=== PATIENT | female | born 1965 | race Caucasian/White ===

== ENCOUNTER 2019-09-14 16:20 | Emergency (ER) | payer MEDICAID ==
[~2019-09-14] VITALS: Ht 177.8 cm; Wt 68.2 kg
[2019-09-14 16:58] LABS: BASOPHILS % (AUTO) 0.6 % (0-1); EOSINOPHILS % (AUTO) 0.2 % (0-6); HEMATOCRIT 30.4 % (35.0-45.0); HEMOGLOBIN 9.3 g/dl (12.0-16.0); LYMPHOCYTES # (AUTO) 2.2 X10'3 (1.1-4.8); LYMPHOCYTES % (AUTO) 29.5 % (21-51); MEAN CORPUSCULAR HEMOGLOBIN 20.2 PG (27.0-31.0); MEAN CORPUSCULAR HGB CONC 30.7 g/dL (33.0-36.5); MEAN CORPUSCULAR VOLUME 65.8 FL (78-98); MEAN PLATELET VOLUME 8.5 FL (7.4-10.4); MONOCYTES # (AUTO) 0.5 X10'3 (0-0.9); MONOCYTES % (AUTO) 6.2 % (2-12); NEUTROPHILS # (AUTO) 4.8 X10'3 (1.8-7.7); NEUTROPHILS % (AUTO) 63.5 % (42-75); PLATELET COUNT 437 X10'3 (140-440); RED BLOOD COUNT 4.62 X10'6 (4.20-5.60); RED CELL DISTRIBUTION WIDTH 19.9 % (11.5-14.5); WHITE BLOOD COUNT 7.5 X10'3 (4.5-11.0)
[2019-09-14] MEDS ORDERED: LORazepam 2 mg/ml vial IV ONE (17:05)
[2019-09-14] MEDS ORDERED: normal saline 1000ML IV soln IVB ONE (17:10)
[2019-09-14 17:11] LABS: PARTIAL THROMBOPLASTIN TIME 23 SECONDS (22-32)
[2019-09-14 17:12] LABS: ALANINE AMINOTRANSFERASE 13 U/L (12-78); ALBUMIN 3.5 G/DL (3.4-5.0); ALBUMIN/GLOBULIN RATIO 0.8 (1.1-1.5); ALKALINE PHOSPHATASE 71 IU/L (46-116); ANION GAP 14 (8-16); ASPARTATE AMINO TRANSFERASE 22 U/L (10-37); BILIRUBIN,TOTAL 1.2 MG/DL (0.1-1.0); BLOOD UREA NITROGEN 11 MG/DL (7-18); BUN/CREATININE RATIO 11.6 (6.6-38.0); CALCIUM 8.9 MG/DL (8.5-10.1); CHLORIDE 99 MMOL/L (99-107); CREATININE 0.95 MG/DL (0.40-0.90); GLUCOSE 144 MG/DL (70-104); SODIUM 136 MMOL/L (135-145); TOTAL CARBON DIOXIDE 22.6 MMOL/L (24-32); TOTAL PROTEIN 7.8 G/DL (6.4-8.2); eGFR 62 ML/MIN
[2019-09-14 17:15] LABS: ANISOCYTOSIS 2+; HYPOCHROMASIA 1+; MICROCYTOSIS 2+; PLATELET ESTIMATE NORMAL; POLYCHROMASIA FEW
[2019-09-14 17:16] LABS: BURR CELLS FEW; ELLIPTOCYTES 1+; SCHISTOCYTES FEW
[2019-09-14] MEDS ORDERED: potassium Cl 20 mEq SR tablet PO ONE (17:20)
[2019-09-14] MEDS ORDERED: potassium Cl 10 mEq/100mL bag IV ONE (17:20)
[2019-09-14] MEDS: haloperidol lactate 5mg/ml inj IM ONE ×2 (17:22→18:02)
[2019-09-14] MEDS ORDERED: diltiazem 5mg/ml 5ml inj. IV ONE (18:00)
--- NOTE | 2019-09-14 18:25 | NUR ---
PT HR RESPONDING TO DITALIZEM, WILL BE DISCHARGED AFTER POTASSIUM 10 MEq FINISHED RUNNING.
[2019-09-14 18:47] VITALS: BP 108/73
== END 2019-09-14 18:48 | disposition home or self-care (01) ==
LOC: ER 16:21
DX: I48.91 Unspecified atrial fibrillation (principal); R11.2 Nausea with vomiting, unspecified; E86.0 Dehydration; N17.9 Acute kidney failure, unspecified; E87.6 Hypokalemia; E11.42 Type 2 diabetes mellitus with diabetic polyneuropathy; F12.90 Cannabis use, unspecified, uncomplicated; R10.10 Upper abdominal pain, unspecified; Z72.89 Other problems related to lifestyle
CPT/HCPCS: 36415; 71045; 80053; 84484; 85025; 85610; 85730; 93005; 96361; 96365; 96372; 96375; 99285; J1630; J2060; J3480; J7030; J3490

== ENCOUNTER 2019-10-19 16:26 | Emergency (ER) | payer MEDICAID ==
[~2019-10-19] VITALS: Ht 177.8 cm; Wt 75.0 kg
[2019-10-19 17:39] LABS: BASOPHILS % (AUTO) 0.4 % (0-1); EOSINOPHILS % (AUTO) 0 % (0-6); HEMATOCRIT 31.8 % (35.0-45.0); HEMOGLOBIN 9.8 g/dl (12.0-16.0); LYMPHOCYTES # (AUTO) 0.6 X10'3 (1.1-4.8); LYMPHOCYTES % (AUTO) 10.2 % (21-51); MEAN CORPUSCULAR HEMOGLOBIN 19.6 PG (27.0-31.0); MEAN CORPUSCULAR HGB CONC 30.8 g/dL (33.0-36.5); MEAN CORPUSCULAR VOLUME 63.7 FL (78-98); MEAN PLATELET VOLUME 8.4 FL (7.4-10.4); MONOCYTES # (AUTO) 0.1 X10'3 (0-0.9); MONOCYTES % (AUTO) 1.8 % (2-12); NEUTROPHILS # (AUTO) 5.6 X10'3 (1.8-7.7); NEUTROPHILS % (AUTO) 87.6 % (42-75); PLATELET COUNT 548 X10'3 (140-440); RED BLOOD COUNT 4.99 X10'6 (4.20-5.60); RED CELL DISTRIBUTION WIDTH 20.4 % (11.5-14.5); WHITE BLOOD COUNT 6.4 X10'3 (4.5-11.0)
[2019-10-19 17:53] LABS: ALANINE AMINOTRANSFERASE 17 U/L (12-78); ALBUMIN/GLOBULIN RATIO 0.8 (1.1-1.5); ALKALINE PHOSPHATASE 73 IU/L (46-116); ANION GAP 17 (8-16); ASPARTATE AMINO TRANSFERASE 23 U/L (10-37); BILIRUBIN,TOTAL 1.2 MG/DL (0.1-1.0); BLOOD UREA NITROGEN 18 MG/DL (7-18); BUN/CREATININE RATIO 24.3 (6.6-38.0); CALCIUM 9.4 MG/DL (8.5-10.1); CHLORIDE 100 MMOL/L (99-107); CREATININE 0.74 MG/DL (0.40-0.90); GLUCOSE 178 MG/DL (70-104); LIPASE 89 U/L (73-393); SODIUM 137 MMOL/L (135-145); TOTAL CARBON DIOXIDE 20.1 MMOL/L (24-32); TOTAL PROTEIN 8.9 G/DL (6.4-8.2); eGFR 82 ML/MIN
[2019-10-19 17:55] LABS: PLATELET ESTIMATE INCREASED
[2019-10-19 17:56] LABS: ANISOCYTOSIS 3+; ELLIPTOCYTES FEW; MICROCYTOSIS 2+; POIKILOCYTOSIS 1+; SCHISTOCYTES FEW
[2019-10-19 17:58] LABS: POTASSIUM 3.8 MMOL/L (3.5-5.1)
[2019-10-19] MEDS ORDERED: diphenhydrAMINE 50 mg/ml inj IV ONE (18:20)
[2019-10-19] MEDS ORDERED: metoclopramide 5 mg/ml inj IV ONE (18:20)
[2019-10-19] MEDS ORDERED: normal saline 1000ml 1,000 ML IV ONE (18:20)
--- NOTE | 2019-10-19 18:45 | NUR ---
pt states N/V has abated. Asks to hold reglan for now.
[2019-10-19 19:39] LABS: CLARITY,URINE CLEAR (Clear); COLOR,URINE YELLOW (Yellow); GLUCOSE, URINE NEGATIVE (Neg); KETONES,URINE >=80 mg/dl (Neg); LEUKOCYTE ESTERASE ,URINE NEGATIVE (Neg); NITRITES, URINE NEGATIVE (Neg); OCCULT BLOOD,URINE SMALL (Neg); PH,URINE 5.5 (4.8-8.0); PROTEIN,URINE NEGATIVE (Neg)
[2019-10-19 19:42] LABS: UA COLLECTION TYPE CLN CATCH MIDSTREAM
[2019-10-19 19:57] VITALS: BP 117/88
[2019-10-19 20:24] LABS: BACTERIA,URINE NONE SEEN /HPF (Neg); MUCUS STRANDS MODERATE /LPF (Neg); RBC,URINE 0-2 /HPF (0-2); SQUAMOUS EPITHELIAL CELL,UR FEW /LPF (FEW); WBC,URINE 0-4 /HPF (0-4)
== END 2019-10-19 20:10 | disposition home or self-care (01) ==
LOC: ER 16:27
DX: R11.2 Nausea with vomiting, unspecified (principal); R51 Headache; R10.9 Unspecified abdominal pain; E11.42 Type 2 diabetes mellitus with diabetic polyneuropathy; I48.91 Unspecified atrial fibrillation; F12.90 Cannabis use, unspecified, uncomplicated; Z72.89 Other problems related to lifestyle
CPT/HCPCS: 36415; 80053; 81001; 82948; 83690; 85025; 96361; 96374; 96375; 99284; J1200; J2765; J7030

== ENCOUNTER 2022-05-24 14:46 | Emergency (ER) | payer MEDICAID ==
[~2022-05-24] VITALS: Ht 177.8 cm; Wt 101.0 kg
[~2022-05-24 14:46] MED LIST: ACET-2971 PO; APIX5TAB3 PO; FLEC100T35 PO; GABA-581 PO; METF-1203 PO; METO-395 PO; NAPR-996 PO; ROSU40TA22 PO; SEMA0.253
[2022-05-24 16:43] LABS: BASOPHILS # (AUTO) 0.1 X10'3 (0-0.2); BASOPHILS % (AUTO) 1.1 % (0-1); EOSINOPHILS # (AUTO) 0.4 X10'3 (0-0.9); HEMATOCRIT 27.6 % (35.0-45.0); HEMOGLOBIN 8.7 g/dl (12.0-16.0); LYMPHOCYTES # (AUTO) 2.1 X10'3 (1.1-4.8); LYMPHOCYTES % (AUTO) 27.4 % (21-51); MEAN CORPUSCULAR HEMOGLOBIN 26.8 PG (27.0-31.0); MEAN CORPUSCULAR HGB CONC 31.6 g/dL (33.0-36.5); MEAN CORPUSCULAR VOLUME 84.7 FL (78-98); MEAN PLATELET VOLUME 8.3 FL (7.4-10.4); MONOCYTES # (AUTO) 0.7 X10'3 (0-0.9); MONOCYTES % (AUTO) 8.8 % (2-12); NEUTROPHILS # (AUTO) 4.4 X10'3 (1.8-7.7); NEUTROPHILS % (AUTO) 57.7 % (42-75); PLATELET COUNT 356 X10'3 (140-440); RED BLOOD COUNT 3.26 X10'6 (4.20-5.60); RED CELL DISTRIBUTION WIDTH 21.1 % (11.5-14.5); WHITE BLOOD COUNT 7.7 X10'3 (4.5-11.0)
[2022-05-24 16:59] LABS: ALANINE AMINOTRANSFERASE 17 U/L (12-78); ALBUMIN 3.4 G/DL (3.4-5.0); ALBUMIN/GLOBULIN RATIO 0.8 (1.1-1.5); ALKALINE PHOSPHATASE 69 IU/L (46-116); ANION GAP 10 (8-16); ASPARTATE AMINO TRANSFERASE 20 U/L (10-37); BILIRUBIN,TOTAL 0.3 MG/DL (0.1-1.0); BLOOD UREA NITROGEN 26 MG/DL (7-18); BUN/CREATININE RATIO 18.6 (10.0-20.0); CALCIUM 9.1 MG/DL (8.5-10.1); CHLORIDE 103 MMOL/L (99-107); GLUCOSE 159 MG/DL (70-104); POTASSIUM 4.4 MMOL/L (3.5-5.1); SODIUM 137 MMOL/L (135-145); TOTAL CARBON DIOXIDE 23.7 MMOL/L (24-32); TOTAL PROTEIN 7.8 G/DL (6.4-8.2); eGFR 39 ML/MIN
[2022-05-24 17:03] LABS: PLATELET ESTIMATE NORMAL
[2022-05-24 17:04] LABS: ANISOCYTOSIS 3+; ELLIPTOCYTES 1+; HYPOCHROMASIA 1+; POIKILOCYTOSIS 2+
[2022-05-24 17:05] LABS: MICROCYTOSIS 1+
[2022-05-24] MEDS ORDERED: apixaban 5mg tablet PO ONE (21:20)
[2022-05-24] MEDS ORDERED: naproxen 500mg tablet PO ONE (21:20)
[2022-05-24 21:25] LABS: BASOPHILS # (AUTO) 0.1 X10'3 (0-0.2); BASOPHILS % (AUTO) 1.1 % (0-1); EOSINOPHILS # (AUTO) 0.4 X10'3 (0-0.9); EOSINOPHILS % (AUTO) 6.6 % (0-6); HEMATOCRIT 24.3 % (35.0-45.0); HEMOGLOBIN 7.8 g/dl (12.0-16.0); LYMPHOCYTES # (AUTO) 2.2 X10'3 (1.1-4.8); LYMPHOCYTES % (AUTO) 36.1 % (21-51); MEAN CORPUSCULAR HGB CONC 32.2 g/dL (33.0-36.5); MEAN CORPUSCULAR VOLUME 83.8 FL (78-98); MEAN PLATELET VOLUME 8.3 FL (7.4-10.4); MONOCYTES # (AUTO) 0.6 X10'3 (0-0.9); MONOCYTES % (AUTO) 9.5 % (2-12); NEUTROPHILS # (AUTO) 2.8 X10'3 (1.8-7.7); NEUTROPHILS % (AUTO) 46.7 % (42-75); PLATELET COUNT 313 X10'3 (140-440); RED CELL DISTRIBUTION WIDTH 20.9 % (11.5-14.5); WHITE BLOOD COUNT 6.1 X10'3 (4.5-11.0)
[2022-05-24 21:44] LABS: URINE HCG NEGATIVE (NEG)
[2022-05-24 21:45] LABS: CLARITY,URINE CLOUDY (Clear); COLOR,URINE RED (Yellow)
[2022-05-24 21:52] LABS: UA COLLECTION TYPE CLN CATCH MIDSTREAM
[2022-05-24 21:53] LABS: RBC,URINE TNTC /HPF (0-2)
[2022-05-24 21:54] LABS: SQUAMOUS EPITHELIAL CELL,UR FEW /LPF (FEW)
[2022-05-24 21:55] LABS: BACTERIA,URINE NONE SEEN /HPF (Neg)
[2022-05-24 21:56] LABS: TRANSITIONAL EPI CELLS,URINE FEW /HPF
[2022-05-24 22:43] VITALS: BP 114/74
--- NOTE | 2022-05-25 00:23 | NUR ---
BLOOD BANK NOTIFIED PT REFUSED BLOOD
--- NOTE | 2022-05-25 00:24 | NUR ---
IV DC'D PT BEING DISCHARGED, DRESSING APPLIED
== END 2022-05-25 00:26 | disposition home or self-care (01) ==
LOC: ER 14:47
DX: N93.9 Abnormal uterine and vaginal bleeding, unspecified (principal); R53.83 Other fatigue; D64.9 Anemia, unspecified; E11.42 Type 2 diabetes mellitus with diabetic polyneuropathy; I48.91 Unspecified atrial fibrillation; F12.90 Cannabis use, unspecified, uncomplicated; Z72.89 Other problems related to lifestyle; Z79.01 Long term (current) use of anticoagulants; Z79.899 Other long term (current) drug therapy; Z79.84 Long term (current) use of oral hypoglycemic drugs
CPT/HCPCS: 36415; 80053; 81001; 81025; 85008; 85025; 86885; 86900; 86901; 86920; 87088; 99283

== ENCOUNTER 2023-02-20 12:02 | Day surgery (SDC) | payer MEDICAID ==
[~2023-02-20] VITALS: Ht 177.8 cm; Wt 102.0 kg
[2023-02-20] MEDS ORDERED: MIDAZolam 1mg/ml 10ml vial IV ONE (12:25)
[2023-02-20] MEDS ORDERED: normal saline 1000ml 1,000 ML IV SCH (12:25)
[2023-02-20] MEDS ORDERED: fentaNYL/PF 50MCG/1 ML 2ML syringe IV ONE (12:25)
== END 2023-02-20 12:45 | disposition home or self-care (01) ==
LOC: SSTAY O 12:02
PROVIDERS: ATTEND Internal Medicine Cardiovascular Disease
DX: I48.4 Atypical atrial flutter (principal); Z53.8 Procedure and treatment not carried out for other reasons; I48.91 Unspecified atrial fibrillation; E11.9 Type 2 diabetes mellitus without complications; E78.00 Pure hypercholesterolemia, unspecified; D64.9 Anemia, unspecified; Z79.01 Long term (current) use of anticoagulants; Z79.899 Other long term (current) drug therapy; Z98.890 Other specified postprocedural states; Z88.8 Allergy status to other drugs, medicaments and biological substances; Z82.49 Family history of ischemic heart disease and other diseases of the circulatory system; Z80.3 Family history of malignant neoplasm of breast
CPT/HCPCS: 93005; J7030; 85610; A4620

== ENCOUNTER 2023-05-12 07:37 | Day surgery (SDC) | payer MEDICAID ==
[~2023-05-12] VITALS: Ht 177.8 cm; Wt 94.7 kg
[2023-05-12] VITALS (14 sets, daily range): BP systolic 105–161; BP diastolic 65–104; PULSE 72–93; RESP 9–20; TEMP 97.8; O2SAT 92–99
[2023-05-12] MEDS ORDERED: LEVO25TA7 PO (08:06)
[2023-05-12] MEDS ORDERED: PREG50CA65 PO (08:06)
[2023-05-12] MEDS ORDERED: RIVA20TA PO (08:06)
[2023-05-12] MEDS ORDERED: AMI200T PO (08:06)
[2023-05-12] MEDS ORDERED: METF-438 PO (08:06)
[2023-05-12] MEDS ORDERED: EVOL140P3 SQ (08:06)
[2023-05-12] MEDS ORDERED: EMPA10TA PO (08:06)
[2023-05-12] MEDS ORDERED: MEGE40TA5 PO (08:06)
[2023-05-12] MEDS ORDERED: CALC667T6 PO (08:06)
[2023-05-12 08:57] LABS: BASOPHILS # (AUTO) 0.1 X10'3 (0-0.2); BASOPHILS % (AUTO) 0.9 % (0-1); EOSINOPHILS # (AUTO) 0.3 X10'3 (0-0.9); EOSINOPHILS % (AUTO) 3.8 % (0-6); HEMATOCRIT 37.7 % (35.0-45.0); HEMOGLOBIN 12.3 g/dl (12.0-16.0); LYMPHOCYTES # (AUTO) 1.2 X10'3 (1.1-4.8); LYMPHOCYTES % (AUTO) 17.4 % (21-51); MEAN CORPUSCULAR HGB CONC 32.6 g/dL (33.0-36.5); MEAN PLATELET VOLUME 9.3 FL (7.4-10.4); MONOCYTES # (AUTO) 0.8 X10'3 (0-0.9); MONOCYTES % (AUTO) 11.3 % (2-12); NEUTROPHILS # (AUTO) 4.5 X10'3 (1.8-7.7); NEUTROPHILS % (AUTO) 66.6 % (42-75); PLATELET COUNT 341 X10'3 (140-440); RED BLOOD COUNT 4.38 X10'6 (4.20-5.60); RED CELL DISTRIBUTION WIDTH 16.5 % (11.5-14.5); WHITE BLOOD COUNT 6.7 X10'3 (4.5-11.0)
[2023-05-12 09:09] LABS: ALBUMIN 3.1 G/DL (3.4-5.0); ANION GAP 15 (8-16); BLOOD UREA NITROGEN 30 MG/DL (7-18); BUN/CREATININE RATIO 18.1 (10.0-20.0); CALCIUM 9.6 MG/DL (8.5-10.1); CHLORIDE 103 MMOL/L (99-107); CREATININE 1.66 MG/DL (0.40-0.90); GLUCOSE 236 MG/DL (70-104); MAGNESIUM 2.1 MG/DL (1.5-2.4); POTASSIUM 4.6 MMOL/L (3.5-5.1); SODIUM 140 MMOL/L (135-145); TOTAL CARBON DIOXIDE 22.3 MMOL/L (24-32); eCRCL 40 ML/MIN; eGFR 32 ML/MIN
[2023-05-12] MEDS: normal saline 1000ml 1,000 ML IV SCH (09:26)
[2023-05-12] MEDS: fentaNYL/PF 50MCG/1 ML 2ML syringe IV ONE (09:26)
[2023-05-12] MEDS: MIDAZolam 1mg/ml 10ml vial IV ONE (09:26)
== END 2023-05-12 11:30 | disposition home or self-care (01) ==
LOC: SSTAY O 07:37
PROVIDERS: ATTEND Internal Medicine Cardiovascular Disease
DX: I48.0 Paroxysmal atrial fibrillation (principal); E11.9 Type 2 diabetes mellitus without complications; E78.00 Pure hypercholesterolemia, unspecified; Z79.01 Long term (current) use of anticoagulants; Z79.84 Long term (current) use of oral hypoglycemic drugs; Z79.890 Hormone replacement therapy; Z79.899 Other long term (current) drug therapy; Z98.891 History of uterine scar from previous surgery; Z98.890 Other specified postprocedural states; Z82.49 Family history of ischemic heart disease and other diseases of the circulatory system; Z80.3 Family history of malignant neoplasm of breast
CPT/HCPCS: 36415; 80048; 82948; 83735; 85025; 92960; 93005; J2250; J3010; J7030; A4620

== ENCOUNTER 2023-06-16 06:35 | Day surgery (SDC) | payer MEDICAID ==
[2023-06-16] VITALS (9 sets, daily range): BP systolic 94–122; BP diastolic 39–91; PULSE 78–104; RESP 12–22; TEMP 98.8; O2SAT 93–97
[~2023-06-16] VITALS: Ht 177.8 cm; Wt 94.6 kg
[~2023-06-16 06:35] MED LIST changes: -ACET-2971 PO; +AMI200T PO; -APIX5TAB3 PO; +CALC667T6 PO; +EMPA10TA PO; +EVOL140P3 SQ; -FLEC100T35 PO; +LEVO25TA7 PO; +MEGE40TA5 PO; -METF-1203 PO; +METF-438 PO; +PREG50CA65 PO; +RIVA20TA PO; -ROSU40TA22 PO
[2023-06-16] MEDS ORDERED: cefazolin 2gm/D5W 100mL 100 ML IV ONE (06:55)
[2023-06-16] MEDS ORDERED: INSU100I8 SQ (07:15)
[2023-06-16] MEDS ORDERED: INSU100V9 SQ (07:15)
[2023-06-16] MEDS ORDERED: FLO0.4C (07:15)
[2023-06-16] MEDS: VANCOMYCIN 1,500MG in normal saline IV soln 300 ML IV ONE (07:39)
[2023-06-16 07:44] LABS: BASOPHILS # (AUTO) 0.1 X10'3 (0-0.2); BASOPHILS % (AUTO) 0.9 % (0-1); EOSINOPHILS # (AUTO) 0.3 X10'3 (0-0.9); EOSINOPHILS % (AUTO) 2.7 % (0-6); HEMATOCRIT 30.2 % (35.0-45.0); HEMOGLOBIN 9.7 g/dl (12.0-16.0); LYMPHOCYTES # (AUTO) 0.9 X10'3 (1.1-4.8); LYMPHOCYTES % (AUTO) 9.5 % (21-51); MEAN CORPUSCULAR HEMOGLOBIN 27.4 PG (27.0-31.0); MEAN CORPUSCULAR HGB CONC 32.1 g/dL (33.0-36.5); MEAN CORPUSCULAR VOLUME 85.4 FL (78-98); MEAN PLATELET VOLUME 8.9 FL (7.4-10.4); MONOCYTES # (AUTO) 0.7 X10'3 (0-0.9); MONOCYTES % (AUTO) 7.1 % (2-12); NEUTROPHILS % (AUTO) 79.8 % (42-75); PLATELET COUNT 287 X10'3 (140-440); RED BLOOD COUNT 3.54 X10'6 (4.20-5.60); RED CELL DISTRIBUTION WIDTH 17.6 % (11.5-14.5)
[2023-06-16 07:53] LABS: ALBUMIN 2.8 G/DL (3.4-5.0); ANION GAP 10 (8-16); BLOOD UREA NITROGEN 24 MG/DL (7-18); CALCIUM 8.7 MG/DL (8.5-10.1); CHLORIDE 105 MMOL/L (99-107); GLUCOSE 164 MG/DL (70-104); MAGNESIUM 1.9 MG/DL (1.5-2.4); POTASSIUM 3.9 MMOL/L (3.5-5.1); SODIUM 136 MMOL/L (135-145); TOTAL CARBON DIOXIDE 21.5 MMOL/L (24-32); eCRCL 34 ML/MIN; eGFR 26 ML/MIN
[2023-06-16 07:55] LABS: INR 1.1 INR; PROTHROMBIN TIME 11.4 SECONDS (9.0-12.0)
[2023-06-16] MEDS ORDERED: midazolam 1 mg/ML 2ml injection ONE ×4 (08:44→10:31)
[2023-06-16] MEDS ORDERED: LIDOCAINE 2%/EPI 1:100,000 inj. Multi-dose 20 ML VIAL ONE (08:44)
[2023-06-16] MEDS ORDERED: fentaNYL/PF 50MCG/1 ML 2ML syringe ONE (08:44)
[2023-06-16] MEDS ORDERED: iohexol 350 MG/ML 50ML vial IV ONE (08:45)
[2023-06-16] MEDS ORDERED: vancomycin 1,000mg inj ONE (08:45)
[2023-06-16] MEDS ORDERED: proCHLORperazine 10 MG/2 ml inj ONE (09:59)
[2023-06-16] MEDS ORDERED: normal saline 1000ml 1,000 ML IV SCH (11:55)
== END 2023-06-16 15:40 | disposition home or self-care (01) ==
LOC: CATH LAB 06:35 → SSTAY O 15:40
PROVIDERS: ATTEND Internal Medicine Cardiovascular Disease
DX: I46.9 Cardiac arrest, cause unspecified (principal); I48.91 Unspecified atrial fibrillation; E11.9 Type 2 diabetes mellitus without complications; E78.00 Pure hypercholesterolemia, unspecified; Z79.01 Long term (current) use of anticoagulants; Z79.84 Long term (current) use of oral hypoglycemic drugs; Z79.890 Hormone replacement therapy; Z79.899 Other long term (current) drug therapy; Z98.891 History of uterine scar from previous surgery; Z98.890 Other specified postprocedural states; Z82.49 Family history of ischemic heart disease and other diseases of the circulatory system; Z80.3 Family history of malignant neoplasm of breast
CPT/HCPCS: 33249; 36415; 71045; 80048; 82948; 83735; 85025; 85610; 93005; 99152; 99153; C1722; J0780; J2250; J3010; J3370; J7030; J7040; Q9967; 33286; A4565; A6258

== ENCOUNTER 2023-10-24 15:36 | Outpatient (CLI) | payer MEDICAID ==
[~2023-10-24 15:36] MED LIST changes: -CALC667T6 PO; +FLO0.4C; +INSU100I8 SQ; +INSU100V9 SQ; -METF-438 PO; -SEMA0.253
== END 2023-10-24 23:59 | disposition home or self-care (01) ==
LOC: 64 CT 15:36
PROVIDERS: ATTEND Podiatrist Foot & Ankle Surgery
DX: S93.326A Dislocation of tarsometatarsal joint of unspecified foot, initial encounter (principal); T84.498A Other mechanical complication of other internal orthopedic devices, implants and grafts, initial encounter; M79.672 Pain in left foot; X58.XXXA Exposure to other specified factors, initial encounter; Y93.89 Activity, other specified; Y92.89 Other specified places as the place of occurrence of the external cause; Y99.8 Other external cause status

== ENCOUNTER 2024-05-29 10:02 | Outpatient (CLI) | payer MEDICAID ==
[~2024-05-29] VITALS: Ht 177.8 cm; Wt 95.3 kg
[~2024-05-29 10:02] MED LIST changes: +NAPR-1168 PO; -NAPR-996 PO
[2024-05-29 10:38] VITALS: PULSE 67; RESP 16; O2SAT 95
[2024-05-29] MEDS: albuterol 2.5 MG/3 ML nebule NEB ONE (10:52)
[2024-05-29 10:53] VITALS: PULSE 69; RESP 16
== END 2024-05-29 23:59 | disposition home or self-care (01) ==
LOC: RT 10:02
PROVIDERS: ATTEND Internal Medicine Interventional Cardiology
DX: I48.91 Unspecified atrial fibrillation (principal); R06.02 Shortness of breath
CPT/HCPCS: 94060; 94760

== ENCOUNTER 2024-07-03 13:42 | Inpatient (IN) | payer MEDICAID ==
[~2024-07-03] VITALS: Ht 177.8 cm; Wt 97.0 kg
[~2024-07-03 13:42] MED LIST changes: -FLO0.4C; +TAMS-55
--- NOTE | 2024-07-03 14:36 | ELECTROCARDIOGRAPH REPORT ---
[facility] Test Date: 2024-07-03 Test Time: 14:33:17 Pat Name: JAI LEES Department: EMERGENCY ROOM Room: ED 1 Gender: F Therapy Assistant: : 1965 Requested By: FLAVIO ESTRADA Order Number: [id number] Reading MD: Dr. Odin Newman Measurements Intervals [place] Rate: 74 P: 47 MI: 200 QRS: 44 QRSD: 93 T: 50 QT: 412 QTc: 457 Interpretive Statements Sinus rhythm Anteroseptal infarct, age indeterminate Baseline wander in lead(s) V5 Electronically Signed On 07-03-2024 18:18:[address] Odin Newman Please click the below link to view image of tracing.
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
[2024-07-03 15:12] LABS: BASOPHILS # (AUTO) 0.1 X10'3 (0-0.2); BASOPHILS % (AUTO) 1.3 % (0-1); EOSINOPHILS # (AUTO) 0.2 X10'3 (0-0.9); EOSINOPHILS % (AUTO) 4.8 % (0-6); HEMATOCRIT 33.9 % (35.0-45.0); HEMOGLOBIN 11.3 g/dl (12.0-16.0); LYMPHOCYTES # (AUTO) 1.1 X10'3 (1.1-4.8); MEAN CORPUSCULAR HEMOGLOBIN 27.2 PG (27.0-31.0); MEAN CORPUSCULAR HGB CONC 33.2 g/dL (33.0-36.5); MEAN CORPUSCULAR VOLUME 81.8 FL (78-98); MONOCYTES # (AUTO) 0.7 X10'3 (0-0.9); MONOCYTES % (AUTO) 13.9 % (2-12); NEUTROPHILS # (AUTO) 2.7 X10'3 (1.8-7.7); PLATELET COUNT 213 X10'3 (140-440); RED BLOOD COUNT 4.15 X10'6 (4.20-5.60); RED CELL DISTRIBUTION WIDTH 19.3 % (11.5-14.5); WHITE BLOOD COUNT 4.8 X10'3 (4.5-11.0)
[2024-07-03 15:18] LABS: BILIRUBIN,URINE NEGATIVE (Neg); CLARITY,URINE CLOUDY (Clear); COLOR,URINE YELLOW (Yellow); GLUCOSE, URINE >=1000 mg/dl (Neg); KETONES,URINE NEGATIVE (Neg); LEUKOCYTE ESTERASE ,URINE NEGATIVE (Neg); OCCULT BLOOD,URINE LARGE (Neg); PROTEIN,URINE TRACE mg/dl (Neg); UROBILINOGEN,URINE 0.2 E.U/dL (0.2-1.0)
[2024-07-03 15:21] LABS: UA COLLECTION TYPE CLN CATCH MIDSTREAM
[2024-07-03 15:22] LABS: NITRITES, URINE NEGATIVE (Neg)
[2024-07-03 15:32] LABS: RBC,URINE TNTC /HPF (0-2); WBC,URINE 0-4 /HPF (0-4)
[2024-07-03 15:33] LABS: BACTERIA,URINE 4+ /HPF (Neg); SQUAMOUS EPITHELIAL CELL,UR FEW /LPF (FEW)
[2024-07-03 15:37] LABS: ALANINE AMINOTRANSFERASE 36 U/L (12-78); ALBUMIN 3.5 G/DL (3.4-5.0); ALBUMIN/GLOBULIN RATIO 0.8 (1.1-1.5); ALKALINE PHOSPHATASE 62 IU/L (46-116); ANION GAP 8 (8-16); ASPARTATE AMINO TRANSFERASE 19 U/L (10-37); BILIRUBIN,TOTAL 0.4 MG/DL (0.1-1.0); BLOOD UREA NITROGEN 51 MG/DL (7-18); BUN/CREATININE RATIO 15.6 (10.0-20.0); CHLORIDE 103 MMOL/L (99-107); CREATININE 3.26 MG/DL (0.40-0.90); GLUCOSE 123 MG/DL (70-104); POTASSIUM 4.2 MMOL/L (3.5-5.1); PRO BRAIN NATRIURETIC PEPTIDE 1817 PG/ML (0-125); SODIUM 137 MMOL/L (135-145); TOTAL CARBON DIOXIDE 25.8 MMOL/L (24-32); eCRCL 20 ML/MIN; eGFR 15 ML/MIN
[2024-07-03 15:44] LABS: CALCIUM 12.2 MG/DL (8.5-10.1)
--- NOTE | 2024-07-03 15:56 | RADIOLOGY REPORT ---
DI CHEST,SINGLE VIEW, HISTORY: CP COMPARISON: DI CHEST,SINGLE VIEW on DOS: 06/16/23, CHEST,SINGLE VIEW on DOS: 09/14/19 DI CHEST,SINGLE VIEW on DOS: 06/16/23, CHEST,SINGLE VIEW on DOS: 09/14/19 TECHNICAL DATA: 1 view of the chest was obtained. FINDINGS: Lines and tubes: A cardiac defibrillator is seen. Cardiomediastinal silhouette: normal Pulmonary vasculature: normal Lung expansion: normal Lung airspace: normal Lung interstitium: normal Pleura: normal Pneumothorax: no Bones: Unremarkable Other: no IMPRESSION: No acute intrathoracic abnormality.
[2024-07-03 16:03] LABS: MAGNESIUM 2.2 MG/DL (1.5-2.4)
[2024-07-03] MEDS: normal saline 1000ml 1,000 ML IV SCH (16:10)
[2024-07-03] MEDS ORDERED: acetaminophen 325mg tablet PO PRN ×2 (16:10)
[2024-07-03] MEDS ORDERED: magnesium sulf-water 4G/100mL 100 ML IV PRN (16:10)
[2024-07-03] MEDS ORDERED: magnesium sulf-water 2g/50mL 50 ML IV PRN (16:10)
[2024-07-03] MEDS ORDERED: potassium Cl 40MEQ/1/2NS 520ml 520 ML IV PRN (16:10)
[2024-07-03] MEDS ORDERED: potassium Cl 20 mEq SR tablet PO PRN ×2 (16:10)
[2024-07-03] MEDS ORDERED: ondansetron/PF 4mg/2ml inj IV PRN (16:10)
[2024-07-03] MEDS ORDERED: magnesium Cl slow-release 64mg tablet PO PRN (16:10)
[2024-07-03] MEDS ORDERED: morphine 2 MG/ML inj. syringe IV PRN (16:10)
[2024-07-03] MEDS ORDERED: glucagon, human recombinant 1mg kit SUBCUT PRN (16:15)
[2024-07-03] MEDS ORDERED: dextrose 50%-water 50ml dispensing syringe IV PRN ×2 (16:15)
[2024-07-03] MEDS ORDERED: DEXTROSE 15 GM of carb/4 tabs (each vial/BOTTLE has 4 tablets) PO PRN ×2 (16:15)
[2024-07-03] MEDS: furosemide 40mg/4ml inj IV ONE (16:42)
[2024-07-03] MEDS: normal saline 1000ML IV soln IVB ONE (16:43)
[2024-07-03] MEDS: INSULIN LISPRO 100 UNIT/ML INSULN.PEN MULTI-DOSE SQ SCH (17:00)
[2024-07-03] MEDS ORDERED: LEVO50TA8 PO (17:07)
[2024-07-03] MEDS ORDERED: PREG75CA76 PO (17:07)
[2024-07-03] MEDS ORDERED: TRAM50TA2 PO (17:07)
[2024-07-03] MEDS ORDERED: TIRZ5PEN SQ (17:07)
[2024-07-03] MEDS: CefTRIAXone 2gm/D5W 50ml BAG 50 ML IV SCH (17:43)
[2024-07-03] MEDS: normal saline 1000ml 1,000 ML IV ONE (18:03)
[2024-07-03] MEDS ORDERED: PAMIDRONATE DISODIUM IV ONE (18:25)
[2024-07-03] MEDS ORDERED: NORMAL SALINE IV ONE (18:25)
--- NOTE | 2024-07-03 18:29 | HISTORY AND PHYSICAL ---
History & Physical Providers to CC ~ History of Present Illness Reason for Admit\Complaint: Abnormal labs with Nephrology specialist History of Present Illness Patient is 59-year-old female with known history of atrial fibrillation, type 2 diabetes, history of cardiac arrest and intubation in past. She was sent from Dr. Winter's office due to abnormal renal function results. As per patient she has chronic kidney disease for which she is following with Nephrology specialist doctor moy. Patient denied any other symptoms no chest pain no shortness a breath, no symptoms suggestive of acute UTI. Further workup done in ER which showed serum creatinine 3.26 with GFR 15, hypercalcemia 12.2 mildly elevated troponin proBNP 1816. No other associated symptoms. Hospitalist services contacted for admission and further management of patient's abnormal labs. Patient also has atrial fibrillation, status post defibrillator placement follows with Dr. Calvin currently who is the new cardiology Dr. For her. She was seen by Dr. ROLLINS in past Allergies: Uncoded Allergies: flecanide (Adverse Reaction, Mild, 06/16/23) Home Medications Home Medications Active Reported Levothyroxine Sodium 50 Mcg Tablet 1 Tab PO DAILY Pregabalin 75 Mg Capsule 1 Cap PO BID Tramadol Hcl (Tramadol HCl) 50 Mg Tablet 1 Tab PO BID PRN Mounjaro (Tirzepatide) 5 Mg/0.5 Ml Pen.injctr 5 Mg SQ MONDAY Megace (Megestrol Acetate) 40 Mg Tablet 1 Tab PO BID Jardiance (Empagliflozin) 10 Mg Tablet 1 Tab PO DAILY Cordarone (Amiodarone HCl) 200 Mg Tablet 1 Tab PO BID Repatha Sureclick (Evolocumab) Unknown Strength Pen.injctr Unknown Dose SQ Xarelto (Rivaroxaban) 20 Mg Tablet 1 Tab PO Metoprolol Succinate 25 Mg Tab.sr.24h 1 Tab PO DAILY Past Medical History Past Medical History Peripheral Neuropathy, Atrial Fibrillation, Diabetes Past Surgical History Surgical History Comment noncontributory Past Social History Social History Comment Patient lives with her , works from home. Able to ambulate. Patient denied any use of any alcohol tobacco or any recreational drugs. ROS ROS As stated above in the HPI, otherwise all systems are reviewed and negative. Exam Vitals: Vital Signs Date Time Temp Pulse Resp B/P (MAP) Pulse Ox O2 Delivery O2 Flow Rate FiO2 07/03/24 18:03 97.5 75 16 135/72 (93) 99 0 General: General-patient not in any acute distress, alert awake oriented, age- appropriate, looks comfortable HEENT-atraumatic normocephalic, neck supple without elevated JVD, no thyromegaly or carotid bruit. No lymphadenopathy bilaterally. Eyes-no icterus or pallor seen in eyes Chest-clear to auscultation bilaterally, breathing nonlabored no tachypnea, no wheezing, no crepitation, no crackles. Defibrillator placed over left side of the chest Heart-S1-S2 normal, regular heart rate no murmur Abdomen bowel sounds positive on auscultation, soft nondistended nontender no guarding, no rigidity Skin no active skin rash Neurology-grossly intact, nonfocal alert awake oriented Extremity- no pedal edema able to move all 4 extremities Psychiatry - patient is not confused or agitated cooperated during physical examination Diagnostic Data Last Recorded Lab Results: 07/03/24 1439 07/03/24 1439 Additional Plan Patient is 59-year-old female with known history of atrial fibrillation, type 2 diabetes, history of cardiac arrest and intubation in past. She was sent from Dr. Winter's office due to abnormal renal function results. Further workup done in ER which showed serum creatinine 3.26 with GFR 15, hypercalcemia 12.2 mildly elevated troponin proBNP 1816. No other associated symptoms. # acute kidney failure on chronic kidney disease stage 3- As per patient she has chronic kidney disease for which she is following with Nephrology specialist doctor Moy. # acute UTI- no symptoms suggestive of acute UTI. Empirically ceftriaxone started today # type 2 diabetes-hemoglobin A1c ordered we will continue to monitor patient's blood sugar levels started on hypo and hyperglycemic protocol . # hypercalcemia-patient is started on IV fluids, patient is strongly advised to avoid nwxo-aio-cqhiduo dairy product in other calcium biri-gue-rackyax. Started on pamidronate and calcitonin. We will continue to monitor calcium levels in a.m. and follow ionized calcium and PTH. # elevated troponin likely due to acute renal failure or type 2 demand ischemia. Patient follows with Dr. Calvin in outpatient setting # elevated BNP likely due to acute renal failure, echocardiogram ordered # atrial fibrillation rate controlled-we will do the home medication reconciliation once updated in electronic record system by nursing staff or pharmacist. # code status discussed with the patient patient wishes to stay full code. Patient's current condition is guarded we will continue to follow patient in AM . Date of Service: Jul 03, 2024 Billing Provider: LYSSA BERG MD Common Visit Codes: [id number] INP/OBS CARE (HIGH) Secondary Visit Codes: [id number] CARE PLAN 30 MINUTES LYSSA BERG MD Jul 03, 2024 18:29
[2024-07-03 18:36] LABS: HEMOGLOBIN A1C 6.9 % (4.5-6.2)
[2024-07-03 18:55] VITALS: BP 119/70; PULSE 82; RESP 18; TEMP 97.9; O2SAT 97
[2024-07-03] MEDS: PAMIDRONATE DISODIUM IV ONE (19:49)
[2024-07-03] MEDS: NORMAL SALINE IV ONE (19:49)
[2024-07-03] MEDS: heparin, porcine 5000 units/ml vial SQ SCH (19:55)
[2024-07-03 20:00] VITALS: RESP 18; O2SAT 97
[2024-07-03 21:27] LABS: FREE T4 (FREE THYROXINE) 1.17 NG/DL (0.73-1.40); THYROID STIMULATING HORMONE 4.8 ulU/ml (0.34-4.50)
[2024-07-03] MEDS: metoprolol succinate 25mg (24-HOUR) SR. Tablet PO SCH (21:47)
[2024-07-03] MEDS: rivaroxaban 20mg tablet PO SCH (21:47)
[2024-07-03] MEDS: traMADol 50MG tablet PO PRN (21:47)
[2024-07-03 22:00] VITALS: BP 137/80; PULSE 87; RESP 16; TEMP 97.9; O2SAT 98
[2024-07-03] MEDS: pregabalin 75mg capsule PO SCH (22:03)
[2024-07-04 05:47] LABS: BASOPHILS # (AUTO) 0.1 X10'3 (0-0.2); BASOPHILS % (AUTO) 1.6 % (0-1); EOSINOPHILS # (AUTO) 0.3 X10'3 (0-0.9); EOSINOPHILS % (AUTO) 7.6 % (0-6); HEMATOCRIT 32.7 % (35.0-45.0); HEMOGLOBIN 10.7 g/dl (12.0-16.0); LYMPHOCYTES # (AUTO) 0.8 X10'3 (1.1-4.8); LYMPHOCYTES % (AUTO) 21.5 % (21-51); MEAN CORPUSCULAR HGB CONC 32.8 g/dL (33.0-36.5); MEAN CORPUSCULAR VOLUME 82.3 FL (78-98); MEAN PLATELET VOLUME 8.9 FL (7.4-10.4); MONOCYTES # (AUTO) 0.5 X10'3 (0-0.9); MONOCYTES % (AUTO) 13.4 % (2-12); NEUTROPHILS # (AUTO) 2.2 X10'3 (1.8-7.7); NEUTROPHILS % (AUTO) 55.9 % (42-75); PLATELET COUNT 188 X10'3 (140-440); RED BLOOD COUNT 3.97 X10'6 (4.20-5.60); RED CELL DISTRIBUTION WIDTH 19.1 % (11.5-14.5); WHITE BLOOD COUNT 3.9 X10'3 (4.5-11.0)
[2024-07-04 06:12] LABS: ALANINE AMINOTRANSFERASE 25 U/L (12-78); ALBUMIN 3.2 G/DL (3.4-5.0); ALBUMIN/GLOBULIN RATIO 0.8 (1.1-1.5); ALKALINE PHOSPHATASE 61 IU/L (46-116); ANION GAP 9 (8-16); ASPARTATE AMINO TRANSFERASE 18 U/L (10-37); BILIRUBIN,TOTAL 0.3 MG/DL (0.1-1.0); BLOOD UREA NITROGEN 46 MG/DL (7-18); BUN/CREATININE RATIO 13.7 (10.0-20.0); CALCIUM 11.4 MG/DL (8.5-10.1); CHLORIDE 107 MMOL/L (99-107); CREATININE 3.36 MG/DL (0.40-0.90); GLUCOSE 125 MG/DL (70-104); POTASSIUM 3.7 MMOL/L (3.5-5.1); SODIUM 143 MMOL/L (135-145); TOTAL CARBON DIOXIDE 26.9 MMOL/L (24-32); TOTAL PROTEIN 7.4 G/DL (6.4-8.2); eCRCL 20 ML/MIN; eGFR 14 ML/MIN
--- NOTE | 2024-07-04 07:21 | PROGRESS NOTE ---
Progress Note Dictate Providers to CC ~ Progress Note: Referring Physician: Hospitalist Reason for Consultation: CKD 4/5, hypercalcemia Chief Complaint: weakness and fatigue History of Present Illness: she is a 59-year-old woman with a history of CKD secondary to diabetes, hypertension, multiple BRAYAN's, presented to the clinic yesterday for routine evaluation and was noted to have a calcium greater than 14 on her labs from several days prior, she had worsening CKD, with some lower extremity edema, dysuria, hematuria, frequency, considering her previous cardiac history I felt it was unsafe for her to be managed outpatient and she was sent to the ED for further evaluation admitted to the hospital, we will follow along with the primary team and help monitor her calcium and make specific recommendations. Review of Systems: Constitutional: Denies fever, chills, weight loss, or fatigue. HEENT (Head, Ears, Eyes, Nose, Throat): Denies headaches, ear pain, vision changes, or nasal congestion. Cardiovascular: Denies chest pain, palpitations, or shortness of breath. Respiratory: Denies cough, shortness of breath, or wheezing. Gastrointestinal: Denies abdominal pain, nausea, vomiting, or diarrhea. Genitourinary: See HPI. Musculoskeletal: Denies joint pain or stiffness. Neurological: Denies numbness, weakness, or dizziness. Psychiatric: Denies anxiety or depression. Integumentary: Denies rash or skin lesions. Hematologic: Denies easy bruising or bleeding. Endocrine: Denies excessive thirst or urination. Antibiotic Ordered?: Yes Objective Vitals Vital Signs Date Time Temp Pulse Resp B/P (MAP) Pulse Ox O2 Delivery O2 Flow Rate FiO2 07/04/24 14:15 18 07/04/24 13:38 96 Room Air 07/04/24 10:00 97.7 68 106/52 (70) 07/04/24 08:00 0.0 Lab Results: 07/04/24 0518 07/04/24 0518 Other Results I & O 07/04/24 07:00 Intake Total 400 ml Balance 400 ml Intake Oral 400 ml # Voids 2 Problem\Assessment\Plan Problems/Diagnosis: (1) Kidney failure, acute Assessment & Plan: BRAYAN on CKD most consistent with hypercalcemia causing volume depletion, recommend continue IV fluids to maintain urine output, I would expect her BUN and creatinine to return to her baseline level of function of low CKD 4, but unfortunately this is difficult to predict, this may represent a new baseline level of function (2) Hypercalcemia due to chronic kidney disease Assessment & Plan: Most consistent with CKD G4A1, but age appropriate history and malignancy screening should be considered - Recommend continued IVF NS 100 mL/hr for now, monitor for hypervolemia and worsening CHF - Accurate I/O please we need them to help make critical decisions with her severe CKD - Cautious use of Bisphosphanates in CKD 4/5 they have a tendency to acutely hasten renal decline, recommend Calcitonin for the first 2 days, if necessary, would consider Prolia which is safe in advanced CKD, would not recommend calcimimetic agents they are associated with increased PO4, this could worsen her already historically elevated PO4 - Recommend PhosLO 1 with meals and snacks to help lower PO4 if it is still elevated, PO4 and Vitamin D in process - If hyperkalemia develops, start Lokelma 10 grams daily (3) Anemia Assessment & Plan: Anemia-CKD, BREE not indicated at this time, [employer] outpatient as of this week were normal MARVA DEGROOT III DO July 04, 2024 07:21
[2024-07-04 07:43] VITALS: BP 93/46; PULSE 72; RESP 14; TEMP 98.5; O2SAT 96
[2024-07-04] MEDS: levoTHYROXINE 25mcg tablet PO SCH (07:50)
[2024-07-04] MEDS: amiodarone 200mg tablet PO SCH (07:50)
[2024-07-04] MEDS: megestrol acetate 20mg tablet PO SCH (07:51)
[2024-07-04] MEDS ORDERED: pregabalin 75mg capsule PO SCH (08:00)
--- NOTE | 2024-07-04 08:06 | RADIOLOGY REPORT ---
INDICATION: acute Renal failure TECHNIQUE: Multiple real-time sonographic images of the kidneys and urinary bladder were obtained. COMPARISON: None FINDINGS: The right kidney measures 9.7 cm in length. The right renal echotexture, contour and cortical thickn ess are within normal limits. No hydronephrosis or large masses/calculi are seen. The left kidney measures 9.9 cm in length. The left renal echotexture, contour, and cortical thicknes s are within normal limits. No hydronephrosis or large masses/calculi are seen. No echogenic intraluminal masses are seen in the bladder. No urinary bladder wall abnormality. Bilat eral ureteral jets are visualized Prevoid residual measures 454 cc. IMPRESSION: 1. No hydronephrosis.
[2024-07-04] MEDS: calcium acetate 667mg (PhosLO) capsule PO ONE (08:40)
[2024-07-04 10:00] VITALS: BP 106/52; PULSE 68; RESP 14; TEMP 97.7; O2SAT 99
--- NOTE | 2024-07-04 13:23 | RADIOLOGY REPORT ---
Procedure: [facility] Exam Date: 07/04/2024 09:32 AM. Clinical History: BRAYAN Comparison Study: Renal ultrasound dated 07/04/2024. Nuclear Medicine Renal Scan with Lasix. Technique: Following the intravenous administration of mCi of technetium 99m labeled MAG-3 , flow im ages were acquired in one second intervals. This was followed by functional imaging of the kidneys in the posterior projection which were obtained at 20 seconds intervals reconstructed into 2 minute frames for a total of 34 minutes. Split function data were generated from the first three minutes of the study. Findings: The flow study reveals prompt visualization of both kidneys with normal flow bilaterally. The kidneys are normal size, location and contour. The functional data was obtained with the renal pelvis included in the region of interest: Left: Peak time on the left is 4.2 minutes. Peak to 1/2 peak on the left is 53 minutes. Right: Peak time on the right is 3.2 minutes. Peak to 1/2 peak on the right is 27 minutes. Split function is 62 % on the left and 38 % on the right. IMPRESSION: Split function is 62 % on the left and 38 % on the right. Delayed excretion in bilateral kidneys, [id number]-right.
[2024-07-04 13:38] VITALS: RESP 16; O2SAT 96
[2024-07-04] MEDS: calcium acetate 667mg (PhosLO) capsule PO SCH (14:07)
[2024-07-04] MEDS: HYDROcodone/acetaminophen 5mg/325mg tablet PO PRN (14:15)
[2024-07-04 18:00] VITALS: BP 128/67; PULSE 77; RESP 18; TEMP 97.6; O2SAT 98
--- NOTE | 2024-07-04 18:26 | CARDIOLOGY REPORT ---
APPROVED REPORT EXAM: Comprehensive 2D, Doppler, and color-flow Echocardiogram. Patient Location: [facility] Blood Pressure: 137/80 mmHg Heart Rate: 70 bpm Rhythm: Sinus Indications Arrhythmia Troponin: 99 ProBNP: 1817 Diabetes Pacemaker/AICD Atrial Fibrillation BICYCLE II ASSEMBLER: Robbin Calvin MD No Previous ECHO 2D Dimensions LA Diam3.6 cm IVSd 0.9 (0.7-1.1cm) LVDd 4.6 cm PWd 0.8 (0.7-1.1cm) IVSs 1.2 (0.8-1.2cm) LVDs 2.6 (2.5-4.0cm) PWs 1.6 (0.8-1.2cm) LVOT Diameter 2.03 (1.8-2.4cm) LVEF(%) 75.2 (>50%) Ao Asc Diam.2.34 cm IVC 10.27 mmFS (%) 43.9 % SV 73.3 ml CO 4.9 L/min M-Mode Dimensions Left Atrium(MM) 4.00 (2.5-4.0cm) Aortic Root 3.27 (2.2-3.7cm) Aortic Cusp Exc 1.72 (1.5-2.0cm) MV EPSS 0.6 (<0.5cm) Aortic Valve AoV Peak Brayan. 172.7 cm/s AoV VTI 27.9 cm AO Peak GR. 11.9 mmHg AO Mean GR. 6 mmHg LVOT VTI 17.94 cm LVOT Peak Brayan. 104.0 cm/s JARAD(VTI)/BSA 2.07 cm2/m2 JARAD (VTI) 2.07 cm2 Mitral Valve MV E Velocity 71.5 cm/s MV Peak Gr. 2 mmHg MV DECEL TIME 236 ms MV A Velocity 87.5 cm/s MV PHT 80 ms E/A Ratio 0.8 MVA (PHT) 2.75 cm2 MV VMax72.2 cm/s TDI Lateral E' P. V10.61 cm/s E/Lateral E' 6.7 Tricuspid Valve TR P. Velocity 291 cm/s RAP ESTIMATE 10 mmHg TR Peak Gr. 34 mmHg RVSP 44 mmHg LEFT VENTRICLE Normal LV size and wall thickness. Overall systolic function is normal. LVEF is 70%. RIGHT VENTRICLE RV is normal size and function. Elevated right heart pressures as noted above. ATRIA The left atrium size is normal. Pacemaker lead is present in the right heart. AORTIC VALVE Trileaflet AV appears mildly sclerotic without stenosis. No insufficiency. MITRAL VALVE Mitral valve leaflets are mildly thickened with mild annular calcification. Trace regurgitation. TRICUSPID VALVE The tricuspid valve is normal in structure with mild to moderate regurgitation. PULMONIC VALVE The pulmonary valve is normal in structure with physiologic insufficiency. GREAT VESSELS The aortic root is normal in size. The ascending aorta is normal in size. The IVC is normal in size a nd collapses >50% with inspiration. PERICARDIUM Normal pericardium. No effusion. Other Information Study Quality: Adequate Conclusion Normal LV size and wall thickness. Overall systolic function is normal. LVEF is 70%. RV is normal size and function. Elevated right heart pressures with an RVSP of 44 mmHg. The left atrium size is normal. Pacemaker lead is present in the right heart. Trileaflet AV appears mildly sclerotic without stenosis. No insufficiency. Mitral valve leaflets are mildly thickened with mild annular calcification. Trace regurgitation. The tricuspid valve is normal in structure with mild to moderate regurgitation. The pulmonary valve is normal in structure with physiologic insufficiency. Normal pericardium. No effusion.
[2024-07-04 20:00] VITALS: RESP 18; O2SAT 98
--- NOTE | 2024-07-04 20:32 | PROGRESS NOTE ---
Daily Progress Note Providers to CC ~ Antibiotic Timeout Antibiotic Ordered?: Yes If Yes, Indications: UTI Subjective No acute events overnight. Patient examined at bedside. No new complaints not in acute distress. Patient denies chest pain, sob, palpitations, abdominal pain, n/v/d. 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 On PhosLo, calcitonin, IVNS0.9%. Objective Vital Signs Date Time Temp Pulse Resp B/P (MAP) Pulse Ox O2 Delivery O2 Flow Rate FiO2 07/04/24 14:15 18 07/04/24 13:38 96 Room Air 07/04/24 10:00 97.7 68 106/52 (70) 07/04/24 08:00 0.0 Result Diagram: 07/04/2451707/04/24517 Physical Exam General: A&Ox 3, NAD HEENT: Normocephalic, PERRLA Neck: Supple, trachea midline, no JVD Chest: Clear to auscultation bilaterally Cardiovascular: RRR GI: Soft and nontender Extremities: No cyanosis/clubbing/or edema BEVEL POLISHER: CN II-XII intact, no focal deficits Musculoskeletal: No paraspinal muscle tenderness, no muscle spasm Skin: Warm and intact Problem\Assessment\Plan # Prerenal BRAYAN on CKD stage IV # Hypercalcemia 2/2 CKD # Hyperphosphatemia 2/2 CKD # Electrolyte imbalances # Dehydration 2/2 hypercalcemia -most consistent with 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 Omalley following, on PhosLo, calcitonin, IVNS0.9% # Anemia of chronic disease likely 2/2 CKD -follow ferritin # UTI -treated with ceftriaxone, will discontinue and start nitrofurantoin given CKD progressing to ESRD -follow urine culture # NIDDM -hyper/hypoglycemic protocol # Type II NC likely 2/2 hypotension and anemia # Afib, CVR # s/p ICD DVT/VTE Prophylaxis: heparin Code Status: Full Code Date of Service: July 04, 2024 Billing Provider: HUAN MOISE Common Visit Codes: [id number] INP/OBS CARE(HIGH) HUAN MOISE July 04, 2024 20:32
[2024-07-04 22:00] VITALS: BP 120/65; PULSE 70; RESP 16; TEMP 97.4; O2SAT 95
[2024-07-04] MEDS: rivaroxaban 15mg tablet PO SCH (22:08)
[2024-07-04] MEDS: heparin, porcine 5000 units/ml vial SQ ONE (22:11)
[2024-07-04 23:50] LABS: BILIRUBIN,URINE NEGATIVE (Neg); CLARITY,URINE CLEAR (Clear); COLOR,URINE YELLOW (Yellow); GLUCOSE, URINE >=1000 mg/dl (Neg); KETONES,URINE NEGATIVE (Neg); LEUKOCYTE ESTERASE ,URINE NEGATIVE (Neg); NITRITES, URINE NEGATIVE (Neg); OCCULT BLOOD,URINE MODERATE (Neg); PH,URINE 6.5 (4.8-8.0); PROTEIN,URINE NEGATIVE (Neg); UROBILINOGEN,URINE 0.2 E.U/dL (0.2-1.0)
[2024-07-04 23:56] LABS: UA COLLECTION TYPE CLN CATCH MIDSTREAM
[2024-07-04 23:58] LABS: RBC,URINE 50-100 /HPF (0-2)
[2024-07-04 23:59] LABS: AMORPHOUS PHOSPHATES 1+; BACTERIA,URINE 1+ /HPF (Neg); MUCUS STRANDS FEW /LPF (Neg); SQUAMOUS EPITHELIAL CELL,UR FEW /LPF (FEW)
[2024-07-05 02:06] LABS: TOTAL PROTEIN,URINE RANDOM 32.9 MG/DL
[2024-07-05 05:56] LABS: BASOPHILS # (AUTO) 0.1 X10'3 (0-0.2); BASOPHILS % (AUTO) 1.4 % (0-1); EOSINOPHILS # (AUTO) 0.3 X10'3 (0-0.9); EOSINOPHILS % (AUTO) 6.9 % (0-6); HEMOGLOBIN 10.7 g/dl (12.0-16.0); LYMPHOCYTES % (AUTO) 24.7 % (21-51); MEAN CORPUSCULAR HEMOGLOBIN 27.4 PG (27.0-31.0); MEAN CORPUSCULAR HGB CONC 33.5 g/dL (33.0-36.5); MEAN CORPUSCULAR VOLUME 81.9 FL (78-98); MONOCYTES # (AUTO) 0.6 X10'3 (0-0.9); MONOCYTES % (AUTO) 14.7 % (2-12); NEUTROPHILS % (AUTO) 52.3 % (42-75); PLATELET COUNT 161 X10'3 (140-440); RED BLOOD COUNT 3.91 X10'6 (4.20-5.60); RED CELL DISTRIBUTION WIDTH 18.9 % (11.5-14.5); WHITE BLOOD COUNT 3.9 X10'3 (4.5-11.0)
[2024-07-05 06:00] VITALS: BP 122/59; PULSE 65; RESP 14; TEMP 98.1; O2SAT 97
[2024-07-05 06:15] LABS: ALANINE AMINOTRANSFERASE 29 U/L (12-78); ALBUMIN/GLOBULIN RATIO 0.7 (1.1-1.5); ALKALINE PHOSPHATASE 59 IU/L (46-116); ANION GAP 9 (8-16); ASPARTATE AMINO TRANSFERASE 18 U/L (10-37); BILIRUBIN,TOTAL 0.4 MG/DL (0.1-1.0); BLOOD UREA NITROGEN 47 MG/DL (7-18); BUN/CREATININE RATIO 14.5 (10.0-20.0); CALCIUM 11.2 MG/DL (8.5-10.1); CHLORIDE 106 MMOL/L (99-107); CREATININE 3.24 MG/DL (0.40-0.90); FERRITIN 111 NG/ML (8-252); GLUCOSE 141 MG/DL (70-104); PHOSPHORUS 3.6 MG/DL (2.3-4.5); POTASSIUM 3.8 MMOL/L (3.5-5.1); SODIUM 140 MMOL/L (135-145); TOTAL CARBON DIOXIDE 25.5 MMOL/L (24-32); TOTAL PROTEIN 7.1 G/DL (6.4-8.2); eCRCL 20 ML/MIN; eGFR 15 ML/MIN
--- NOTE | 2024-07-05 07:43 | PROGRESS NOTE ---
Progress Note Dictate Providers to CC ~ Antibiotic Ordered?: Yes Subjective Subjective Doing well, calcium 11.2, good UOP, eating well Objective Vitals Vital Signs Date Time Temp Pulse Resp B/P (MAP) Pulse Ox O2 Delivery O2 Flow Rate FiO2 07/04/24 22:00 97.4 70 16 120/65 (83) 95 Room Air 07/04/24 08:00 0.0 Resting in bed comfortableRRR w/o murmur CTA B no wheezes +BS, NT No edema Lab Results: 07/05/24 0529 07/05/24 0529 Other Results I & O 07/05/24 07:00 Intake Total 1700 ml Output Total 850 ml Balance 850 ml Intake Oral 1700 ml Output Urine Total 850 ml # Voids 7 Problem\Assessment\Plan Problems/Diagnosis: (1) Kidney failure, acute Assessment & Plan: BRAYAN on CKD most consistent with hypercalcemia causing volume depletion, recommend continue IV fluids to maintain urine output, I would expect her BUN and creatinine to return to her baseline level of function of low CKD 4, but unfortunately this is difficult to predict, this may represent a new baseline level of function (2) Hypercalcemia due to chronic kidney disease Assessment & Plan: Most consistent with CKD G4A1, but age appropriate history and malignancy screening should be considered - Recommend continued IVF NS 100 mL/hr for now, monitor for hypervolemia and worsening CHF - Accurate I/O please we need them to help make critical decisions with her severe CKD - Cautious use of Bisphosphanates in CKD 4/5 they have a tendency to acutely hasten renal decline, recommend Calcitonin for the first 2 days, if necessary, would consider Prolia which is safe in advanced CKD, would not recommend calcimimetic agents (cinacalcet) they are associated with increased PO4, this could worsen her already historically elevated PO4, and PTH has been normal prior to admission - Recommend PhosLO 1 with meals and snacks to help lower PO4 if it is still elevated, PO4 and Vitamin D in process - If hyperkalemia develops, start Lokelma 10 grams daily - Recommend Furosemide 40 mg IV 1 time dose today Her calcium is improved from 14.3 at clinic to 11.2, she could go home today and follow-up in clinic 1 week with renal profile, UA, ionized calcium, (3) Anemia MARVA DEGROOT III DO July 05, 2024 07:43
[2024-07-05] MEDS: nitrofuran monohydrate/nitrofuran macrocrysal 100 MG (MacroBID) capsule PO SCH (07:53)
[2024-07-05] MEDS: heparin, porcine 5000 units/ml vial SQ SCH (07:54)
[2024-07-05] MEDS: calcitonin,salmon synthetic 200 units/ml inj SQ SCH (07:54)
[2024-07-05 10:00] VITALS: BP 134/70; PULSE 71; RESP 16; TEMP 98.1; O2SAT 96
[2024-07-05] MEDS ORDERED: CALC667T6 PO (11:23)
--- NOTE | 2024-07-05 12:18 | DISCHARGE SUMMARY ---
Discharge Summary Providers to CC ~ Discharge Summary Admission Diagnosis: BRAYAN on CKD, acute UTI, hypercalcemia, electrolyte imbalances Hospital Course DATE OF ADMISSION: 07/03/24 DATE OF DISCHARGE: 07/05/24 Discharge Diagnosis\\Comment: Prerenal BRAYAN on CKD stage IV Hypercalcemia 2/2 CKD Hyperphosphatemia 2/2 CKD Electrolyte imbalances Dehydration 2/2 hypercalcemia Anemia of chronic disease likely 2/2 CKD UTI NIDDM Type II UT likely 2/2 hypotension and anemia Afib, CVR s/p ICD Operations\\Procedures: None Consultants: [employer] Technician Dr. Catalina Winter Complications: None Condition on DC: Stable New Medications: Calcium Acetate (PhosLo tablet) 667 Mg Tablet 1 TAB PO Q8H for 3 Days, #9 TAB 0 Refills Nitrofurantoin Monohyd/M-Cryst (Macrobid 100 mg Capsule) 100 Mg Capsule 1 CAP PO Q12H for 10 Days, #20 CAP 0 Refills Rivaroxaban (Xarelto) 15 Mg Tab 15 MG PO HS for 90 Days, #90 TAB Continued Medications: Amiodarone Hcl (Cordarone) 200 Mg Tablet 1 TAB PO BID Empagliflozin (Jardiance) 10 Mg Tablet 1 TAB PO DAILY Evolocumab (Repatha Sureclick) Unknown Strength Pen.injctr Unknown Dose SQ Levothyroxine Sodium (Levothyroxine Sodium) 50 Mcg Tablet 1 TAB PO DAILY Megestrol Acetate (Megace) 40 Mg Tablet 1 TAB PO BID Metoprolol Succinate (Metoprolol Succinate) 25 Mg Tab.sr.24h 1 TAB PO HS Pregabalin (Pregabalin) 75 Mg Capsule 1 CAP PO BID Tirzepatide (Mounjaro) 5 Mg/0.5 Ml Pen.injctr 5 MG SQ MONDAY Tramadol Hcl (Tramadol Hcl) 50 Mg Tablet 1 TAB PO BID PRN for pain Discontinued Medications: Rivaroxaban (Xarelto) 20 Mg Tablet 1 TAB PO HS Discharge Summary: History of Present Illness Patient is 59-year-old female with past medical history of atrial fibrillation, NIDDM, cardiac arrest s/p ICD. Patient was sent from Dr. Winter's office due to abnormal renal function results. Per patient, she has chronic kidney disease for which she is following with business solution analyst Dr. Winter for. Patient denies any other symptoms no chest pain no shortness a breath, no symptoms suggestive of acute UTI. Further workup done in ED which showed serum creatinine 3.26 with GFR 15, hypercalcemia 12.2 mildly elevated troponin proBNP 1816. No other associated symptoms. Hospitalist services contacted for admission and further management of patient's abnormal labs. Patient also has atrial fibrillation, status post defibrillator placement follows with Dr. Calvin." Hospital Course Diagnostic findings were notable for elevated ionized calcium, hyperphosphatem ia, abnormal renal nuclear scan, positive urinalysis for urinary tract infection. Negative findings were unremarkable renal ultrasound. TTE was unremarkable with LVEF of 70% with no significant valvular heart disease. EKG indicated sinus rhythm at rate of 74 bpm. 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 Patient was treated with IV 0.9% NS, Lasix, PhosLo, empirical antibiotics. Patient did not experience further complications throughout the entire hospital stay. Patient was seen and examined on the day of discharge. On day of discharge, vss and labs notable for persistent renal insufficiency. With treatment phosphorus within normal limits and serum calcium downtrending. Urine culture remains pending until day of discharge. Due to severe renal insufficiency, antibiotic regimen changed. All labs, diagnostic workups, discharge plan discussed with patient in details during visit before discharge. All questions and concerns answered to the best of my professional knowledge. Patient is cleared for discha rge from nephrology standpoint by Dr. Winter. Patient is to follow-up with PCP and business solution analyst Dr. Winter within 1 week. 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
[2024-07-05] MEDS: furosemide 40mg/4ml inj IV ONE (12:20)
[2024-07-05] MEDS ORDERED: NITR100C6 PO (12:24)
[2024-07-05] MEDS ORDERED: RIVA15TA PO (13:38)
== END 2024-07-05 14:10 | disposition home or self-care (01) | DRG 207 ==
LOC: ER 13:42 → ED HOLD 16:14 → ORTHO 4S 18:45
PROVIDERS: ADMIT Internal Medicine; ATTEND Internal Medicine
PROC: CT131ZZ Planar Nuclear Medicine Imaging of Kidneys, Ureters and Bladder using Technetium 99m (Tc-99m) (ICD-10-PCS; principal; 2024-07-04)
DX: I95.9 Hypotension, unspecified (principal); I21.A1 Myocardial infarction type 2; N17.9 Acute kidney failure, unspecified; D63.1 Anemia in chronic kidney disease; E83.39 Other disorders of phosphorus metabolism; E86.0 Dehydration; I48.91 Unspecified atrial fibrillation; E83.52 Hypercalcemia; E11.42 Type 2 diabetes mellitus with diabetic polyneuropathy; E11.22 Type 2 diabetes mellitus with diabetic chronic kidney disease; N18.4 Chronic kidney disease, stage 4 (severe); N39.0 Urinary tract infection, site not specified; I12.9 Hypertensive chronic kidney disease with stage 1 through stage 4 chronic kidney disease, or unspecified chronic kidney disease; Z79.4 Long term (current) use of insulin; Z79.899 Other long term (current) drug therapy; Z88.8 Allergy status to other drugs, medicaments and biological substances
CPT/HCPCS: 36415; 71045; 76770; 78707; 80053; 81001; 82330; 82570; 82728; 82948; 83036; 83735; 83880; 83970; 84100; 84133; 84156; 84300; 84439; 84443; 84484; 84540; 85025; 87081; 87088; 93005; 93306; 96361; 96365; 96372; 96375; 97116; 97161; 97530; 99285; A9562; G0378; J0630; J0696; J1644; J1815; J1940; J2430; J7030; J7040